=== PATIENT | female | born 1965 | race Caucasian/White ===

== ENCOUNTER → 2017-02-19 | Day surgery (SDC) | payer OTHER ==
[~2017-02-19] VITALS: Ht 165.1 cm; Wt 113.4 kg
--- NOTE | 2017-02-19 12:25 | Operative Report ---
Operative/Inv Procedure Report Surgery Date: 02/19/17 Name of Procedure: 1. Exam under anesthesia with anal block 2. Excision of the anal mass Pre-Operative Diagnosis: Anal mass Post-Operative Diagnosis: Same Estimated Blood Loss: scant Surgeon/Acquisition Marketing Coordinator: Amira Yeh MD Anesthesia: local monitored anesthesi Specimens: Anal mass Complications: None Operative Indication: Stable to recovery room patient is a 51-year-old woman who recently had colonoscopy and was found to have an anal mass. Patient presents today for excision of the mass. All risks benefits and alternatives of the procedure were explained to patient detail, and she expressed understanding and agreement with the same. Operative/Procedure Note Note: Patient was taken to the operating room and placed on the operating table in the prone jackknife position. Anesthesia was established by the anesthesia team. All appropriate pressure points were padded, and the patient was secured to the operating table. The buttocks were taped apart and the perineum was prepped in the standard surgical fashion. The timeout was carried out. The anal block was administered with 20 mL of 1% lidocaine with epinephrine. On anoscopy, patient had a large hypertrophied anal papilla in the right posterior position. It was excised and hemostasis was achieved with electrocautery. 2-0 Vicryl sutures were used to approximate the edges of the incision. Lidocaine soaked Gelfoam was placed within the anal canal after it had been irrigated and checked for hemostasis. The sponge and instrument counts were correct in the end the procedure. Patient tolerated the procedure well, was wakened up and taken to recovery room in stable condition. Findings: Right posterolateral hypertrophied anal papilla Discharge Disposition: home
== END ==
LOC: STS 03:05
DX: D12.9 Benign neoplasm of anus and anal canal (principal); E11.9 Type 2 diabetes mellitus without complications; Z79.84 Long term (current) use of oral hypoglycemic drugs; E66.01 Morbid (severe) obesity due to excess calories; Z68.41 Body mass index [BMI] 40.0-44.9, adult; L40.9 Psoriasis, unspecified; Z86.69 Personal history of other diseases of the nervous system and sense organs
CPT/HCPCS: 81025; J0131; J2250